=== PATIENT | female | born 1965 | race Caucasian/White ===

== ENCOUNTER 2016-11-23 06:01 | Day surgery (SDC) | payer OTHER ==
[2016-11-23 08:06] VITALS: BP 123/76; BMI 35.3
[2016-11-23 09:03] LABS: HEMATOCRIT 39.8 % (36.0-48.0); HEMOGLOBIN 14.2 g/dL (12-16); MCH 32.3 pg (26.0-34.0); MCHC 35.7 g/dL (31.0-37.0); MCV 90.7 fL (80.0-100.0); MEAN PLATELET VOLUME 10.1 fL (7.4-10.4); RBC 4.39 10x6/uL (4.00-5.40); RDW 12.1 % (11.5-14.5); WBC 6.5 10x3/uL (4.8-10.8)
[2016-11-23] MEDS ORDERED: KEFLEX500 MG PO (13:13)
[2016-11-23] MEDS ORDERED: NORCO 7.5/325 T1 TA1 PO (13:25)
--- NOTE | 2016-11-23 15:42 | NUR ---
1450--IV DC'D, PT UP TO DRESS AT THIS TIME. DAVID PONCE 1505--DISCHARGE INSTRUCTIONS GIVEN, PT VERBALIZES UNDERSTANDING. PT OFF UNIT VIA WC. DAVID PONCE
--- NOTE | 2016-12-14 13:09 | OP ---
PATIENT NAME: ANTONIO MENESES MEDICAL RECORD: [id number] :[id number] LOCATION:D.OPS ADMISSION DATE: SURGEON: ANNIE VIVAS DPM DATE OF OPERATION: 11/23/2016 PREOPERATIVE DIAGNOSIS: Plantar flexed right third metatarsal. POSTOPERATIVE DIAGNOSIS: Plantar flexed right third metatarsal. PROCEDURES: Reynaldo osteotomy, right third metatarsal. HEMOSTASIS: Right thigh tourniquet at 350 mmHg. ANESTHESIA: General with local infiltrate utilizing lidocaine and Marcaine plain, 10mL total on the third ray of the right foot. PREOPERATIVE DETAILS: The patient was taken to the OR and placed on the operating table in a supine position. This was followed by induction of general anesthesia and infiltration of local anesthetic. The right extremity was then prepped and draped in the usual aseptic technique followed by exsanguination of extremity and inflation of tourniquet. A 15-blade was used to create a 3.5-cm linear incision over the dorsal aspect of the distal third metatarsal area. The incision was deepened down through subcutaneous tissue to the extensor longus tendons. A 15-blade was used to make an incision between the extensor longus and extensor brevis tendon, which gave access to the third MPJ. The third metatarsal head was delivered. A sagittal saw was used to create a dorsal distal to plantar proximal Reynaldo osteotomy with some planing between the proximal and distal fragments allowing elevation of the distal fragment, which allowed dorsiflexion at the third metatarsal head reducing the plantar prominence of the third metatarsal head. Once the proper level was achieved, a popoff screw was placed across the osteotomy site holding it stable. Excellent fixation was noted. The wound was flushed. The capsule as well as the extensor parada was repaired with 2-0 Vicryl. The subcutaneous tissue was then repaired with 4-0 Vicryl. The skin was reapproximated with 4-0 nylon in a simple interrupted technique followed by Gomez, 4 x 4, dennis, and Chase. Tourniquet was deflated. POSTOPERATIVE DETAILS: The patient tolerated the procedure well and left the OR with vital signs stable and vascular status at preop levels. The patient was transported to recovery per anesthesia in stable condition. TRANSINT:[id number] Voice Confirmation ID: [id number] DOCUMENT ID: [id number] ANNIE VIVAS DPM at 1309 CC: [id number] DICTATION DATE: 11/23/16 1111 [employer] ASSEMBLER: 11/23/16 1207 [facility] [place] 11/23/16 [id number] [place] [id number]
== END 2016-11-23 15:05 | disposition home or self-care (01) ==
LOC: D.OPS 06:01
PROVIDERS: Anesthesiology
DX: M21.271 Flexion deformity, right ankle and toes (principal); Z01.812 Encounter for preprocedural laboratory examination